=== PATIENT | female | born 1990 | race Caucasian/White ===

== ENCOUNTER 2021-03-14 12:15 | Observation (INO) | payer BC ==
[~2021-03-14] VITALS: Ht 170.2 cm; Wt 71.0 kg
[~2021-03-14 12:15] MED LIST: ACETAMINOPHEN TAB 650MG DOSE (2X325MG) PO SCH; IBUPROFEN 600MG TAB PO SCH
[2021-03-14] MEDS ORDERED: MORPHINE 2 MG/ML 1ML VIAL (J2270) IV ONE (12:50)
[2021-03-14] MEDS: NS 1,000 ML IV SCH ×2 (13:16→15:55)
[2021-03-14 13:28] LABS: BASO % 0.2 % (0.0-1.0); EOS % 0.1 % (0.0-3.0); HEMATOCRIT 31.2 % (36.0-47.0); HEMOGLOBIN 10.4 g/dl (12.0-15.5); LYMPH # 1.7 10^3/uL (1.5-5.0); LYMPH % 12.9 % (24.0-44.0); MEAN CORPUSCULAR HEMOGLOBIN 30.5 pg (27.0-33.0); MEAN CORPUSCULAR HGB CONC 33.3 g/dl (32.0-36.5); MEAN CORPUSCULAR VOLUME 91.5 fl (80.0-96.0); MONO # 1.1 10^3/uL (0.0-0.8); MONO % 8.4 % (2.0-8.0); NEUTROPHILS # 10.4 10^3/uL (1.5-8.5); PLATELET COUNT, AUTOMATED 248 10^3/uL (150-450); RED BLOOD COUNT 3.41 10^6/uL (4.00-5.40); WHITE BLOOD COUNT 13.4 10^3/uL (4.0-10.0)
[2021-03-14] MEDS ORDERED: oxyCODONE 5MG TAB PO PRN (14:00)
[2021-03-14] MEDS ORDERED: HOME MED LIST COMPLETE! XX SCH (14:05)
--- NOTE | 2021-03-14 14:19 | HPEPDOC ---
General Date of Admission 03/14/2021 Date of Service: Mar 14, 2021 Chief Complaint The patient is a 30-year-old -0-1-2 who presents to the emergency room as a transfer of care from [facility] with a diagnosis of pelvic pain and hemoperitoneum visualized on CT scan. Patient states that her pain started last night around 9 PM after intercourse. The pain began in the right lower quadrant and increased significantly over the course of several hours. Patient states that she was unable to get comfortable and that she took several hot pads and applied heating pads which provided minimal relief. Patient states that she tried to stay home bed at approximately 4 AM the pain became so severe that she felt like she was going to pass out at which time she presented to [facility]. At the time she was nauseous but has not vomited. She denies any shortness of breath dizziness or lightheadedness. She denies any vaginal bleeding but states that she feels as if her abdomen is bloated. Since present ing to the [facility] she feels that her pain is better controlled however it has radiated to her right upper quadrant. She has started to develop some tenderness in her right shoulder consistent with referred peritoneal pain. Patient's LMP was February 19 and she is not currently on any contraception. She and her partner use condoms for control. Her beta hCG drawn in [facility] was negative. Here in the emergency room at [facility] the patient rates her pain at about a 6 out of 10. It is worsened with sudden movements and abdominal flexion such as coughing or laughing. However, she is resting comfortably during our interview. On ROS: Denies fevers or chills. Had one episode of lightheadedness around 4 AM but symptoms have since resolved. Denies headaches or vision changes. Denies chest pain or shortness of breath. Denies palpitations. Denies constipation diarrhea. Denies dysuria urgency or frequency. Denies vaginal bleeding. Denies muscle weakness. See HPI for remainder of pertinent positives and negatives. OB history: -0-1-2, x1, LTCS x1, SAB x1 [employer] history: LMP 02/19/2021, cycle cyclic and regular. Denies history of STDs or STIs. Not currently on contraception. No history of ovarian cysts. No history of abnormal Pap smears. Source: Patient Home Medications No Active Prescriptions or Reported Meds Allergies Coded Allergies: No Known Allergies (Unverified , 03/14/21) Past Medical History Medical History Denies Surgical History Primary low transverse section in January 2020 for breech presentation in labor Family History Significant Family History: No pertinent family hx Social History * Smoker: Denies Alcohol: Denies Drugs: denies A-FIB/CHADSVASC A-FIB History Current/History of A-Fib/PAF?: No Current PO Anticoag Therapy: No Physical Examination General Exam: Positive: Alert, No Acute Distress Chest Exam: Positive: Clear to auscultation Heart Exam: Positive: Rate Normal, Regular Rhythm Abdomen Exam: Positive: Soft (Moderately tender to palpation in the right lower quadrant. Nondistended, nontympanic. No rebounding or guarding.) Vital Signs Vital Signs Date Time Temp Pulse Resp B/P (MAP) Pulse Ox O2 Delivery O2 Flow Rate FiO2 03/14/21 13:27 16 03/14/21 13:15 66 118/61 (80) 98 Room Air 03/14/21 12:16 97.5 Laboratory Data Labs 24H Laboratory Tests 2 03/14/21 13:15: Immature Granulocyte % (Auto) 0.4, Neutrophils (%) (Auto) 78.0H, Lymphocytes (%) (Auto) 12.9L, Monocytes (%) (Auto) 8.4H, Eosinophils (%) (Auto) 0.1, Basophils (%) (Auto) 0.2, Neutrophils # (Auto) 10.4H, Lymphocytes # (Auto) 1.7, Monocytes # (Auto) 1.1H, Eosinophils # (Auto) 0.0, Basophils # (Auto) 0.0, Nucleated Red Blood Cells % (auto) 0.0 CBC/BMP Laboratory Tests 03/14/21 13:15 Assessment/Plan Patient is a 30-year-old -0-1-2 with pelvic pain and pelvic imaging showing hemoperitoneum likely related to ruptured hemorrhagic cyst. Plan / VTE VTE Prophylaxis Ordered?: Yes (Teds) VTE Exclusion Mechanical Proph: Low Risk for VTE VTE Exclusion Pharmacological: Hemorrhage Plan Plan Admit patient for observation overnight. 1. Hemoperitoneum -Patient hemodynamically stable -Hemoglobin stable at 10.4 slightly decreased from 11.8 this morning -Recommend serial hemoglobins every 4-6 hours to assess for ongoing bleeding -Discussed the need for possible emergency surgery if vital signs become unstable or pain dramatically increases 2. Pain control -Tylenol and Motrin [id number] -Oxycodone 5 mg as needed -Serial abdominal exams if pain starts to increase or is not controlled with medications Dispo: Admit patient for observation and for pain control overnight. Anticipate discharge in the morning IVF: Continue Diet: Continue Current Activity: Continue Current YOBANI RAUSCH MD Mar 14, 2021 14:13
[2021-03-14 16:04] VITALS: BP 125/56
[2021-03-14 18:04] LABS: HEMATOCRIT 26.8 % (36.0-47.0); HEMOGLOBIN 8.7 g/dl (12.0-15.5)
[2021-03-14 20:00] VITALS: BP 126/56
[2021-03-14] MEDS ORDERED: ACETAMINOPHEN TAB 650MG DOSE (2X325MG) PO SCH (20:00)
[2021-03-14] MEDS: IBUPROFEN 600MG TAB PO SCH (20:22)
[2021-03-14] MEDS: ACETAMINOPHEN 500 MG TAB PO SCH (20:23)
[2021-03-14 22:00] LABS: HEMATOCRIT 24.7 % (36.0-47.0); HEMOGLOBIN 8.1 g/dl (12.0-15.5)
[2021-03-15] VITALS: BP 116/56
[2021-03-15 01:47] LABS: HEMATOCRIT 24.6 % (36.0-47.0)
[2021-03-15] MEDS: IBUPROFEN 600MG TAB PO SCH ×2 (03:21→09:30)
[2021-03-15] MEDS: ACETAMINOPHEN 500 MG TAB PO SCH ×2 (03:21→09:30)
[2021-03-15 03:54] VITALS: BP 117/56
[2021-03-15 06:27] LABS: HEMATOCRIT 25.6 % (36.0-47.0); HEMOGLOBIN 8.2 g/dl (12.0-15.5)
[2021-03-15] MEDS ORDERED: INFLUENZA QUADRIVALENT PF VACCINE 0.5ML SYRINGE IM ONE (09:00)
[2021-03-15 09:30] VITALS: BP 121/77
--- NOTE | 2021-03-15 12:15 | DS.PDOC ---
Discharge Summary General Date of Admission Mar 14, 2021 at 13:53 Date of Discharge 03/15/2021 Discharge Summary PROCEDURES PERFORMED DURING STAY: None. ADMITTING DIAGNOSES: 1. Pelvic pain DISCHARGE DIAGNOSES: 1. hemoperitoneum 2. Pelvic pain 3. Rupture of ovarian cyst 4. + RSV COMPLICATIONS/CHIEF COMPLAINT: Hemoperitoneum, Nontraumatic, Pelvic Pain, Rupture. HISTORY OF PRESENT ILLNESS: 30 year old female who is a with an LMP of 03/15/2021 was admitted via transfer from [facility] with symptoms of severe pelvic pain that began at 9pm on 03/14/21, pain was worsened with cough or flexion of abdominal muscles. Pt was given pain medication (morphine) at [facility] with good relief, and was transfered to [facility] for further evaluation and management. Pt is now noting abdominal bloating and mild discomfort at this time, and has started her menses in the last few hours. She is using condoms for contraception, has used ocp and Mirena IUD in past, and her partner is currently contemplating vasectomy. Pt is ambulating without problems, she is voiding without problems and tolerating regular diet. Of note, she is positive for RSV and complains of mild rhinorrhea. Her one year old child also has cold symptoms. Consult for plan of care done with Dr Olivera, [employer] HOSPITAL COURSE: Uncomplicated, severe pelvic pain resolved, anemia. DISCHARGE MEDICATIONS: Please see below. ALLERGIES: Please see below. PHYSICAL EXAMINATION ON DISCHARGE: VITAL SIGNS: Please see below. GENERAL: alert and oriented x 3. RESPIRATORY EXAMINATION: normal rate, breathing comfortably on room air, no use of accessory muscles ABDOMINAL EXAMINATION: soft, mild pelvic tenderness that has improved LABORATORY DATA: Please see below. ACTIVITY: As tolerated. DIET: regular diet DISCHARGE PLAN: 1. Discharge to home. 2. Follow-up with [employer] provider in 1-2 weeks ([place]). 3. Diet as tolerated. 4. Pelvic rest including no vaginal intercourse or heavy lifting until pain resolves. 5. Start Iron supplement BID, may use colace as needed. 6. May use Ibuprofen and Tylenol for pain relief. DISCHARGE CONDITION: Stable. Vital Signs/I&Os Vital Signs Date Time Temp Pulse Resp B/P (MAP) Pulse Ox O2 Delivery O2 Flow Rate FiO2 03/15/21 09:30 98.7 81 16 121/77 (92) 99 Room Air I&O- Last 24 Hours up to 6 AM 03/15/21 06:00 Intake Total 1240 ml Output Total 400 ml Balance 840 ml Laboratory Data Labs 24H Laboratory Tests 2 03/14/21 13:15: Immature Granulocyte % (Auto) 0.4, Neutrophils (%) (Auto) 78.0H, Lymphocytes (%) (Auto) 12.9L, Monocytes (%) (Auto) 8.4H, Eosinophils (%) (Auto) 0.1, Basophils (%) (Auto) 0.2, Neutrophils # (Auto) 10.4H, Lymphocytes # (Auto) 1.7, Monocytes # (Auto) 1.1H, Eosinophils # (Auto) 0.0, Basophils # (Auto) 0.0, Nucleated Red Blood Cells % (auto) 0.0 CBC/BMP Laboratory Tests 03/14/21 13:15 03/14/21 17:50 03/14/21 21:50 03/15/21 01:33 03/15/21 06:07 Discharge Medications Scheduled Docusate Sodium (Colace) 100 Mg Capsule, 1 CAP PO BID Ferrous Gluconate (Ferrous Gluconate) 324 Mg Tablet, 1 TAB PO BID Scheduled PRN Acetaminophen (Acetaminophen) 500 Mg Tablet, 1,000 MG PO Q8HP PRN for PAIN LEVEL 1-5 Ibuprofen (Ibuprofen) 600 Mg Tablet, 800 MG PO Q8HP PRN for PAIN LEVEL 5-10 Allergies Coded Allergies: codeine (Verified Adverse Reaction, Unknown, vomiting, 03/14/21) Pt states codeine makes her vomit SUMA ASHRAF CNM Mar 15, 2021 12:16
[2021-03-15] MEDS ORDERED: ACET-683 PO (12:21)
[2021-03-15] MEDS ORDERED: FERR32TA PO (12:21)
[2021-03-15] MEDS ORDERED: COLA100C5 PO (12:21)
[2021-03-15] MEDS ORDERED: IBUP-1022 PO (12:21)
== END 2021-03-15 13:20 | disposition home or self-care (01) ==
LOC: M ED 12:15 → M ED INP 13:53 → M PED 16:04
PROVIDERS: ADMIT Obstetrics & Gynecology; ATTEND Obstetrics & Gynecology
DX: K66.1 Hemoperitoneum (principal); R10.2 Pelvic and perineal pain; N83.209 Unspecified ovarian cyst, unspecified side; J06.9 Acute upper respiratory infection, unspecified; B97.4 Respiratory syncytial virus as the cause of diseases classified elsewhere; J34.89 Other specified disorders of nose and nasal sinuses; D64.9 Anemia, unspecified; Z79.899 Other long term (current) drug therapy; Z88.5 Allergy status to narcotic agent
CPT/HCPCS: 36415; 85014; 85018; 85025; 86850; 86900; 86901; 90686; 96361; 96374; 99285; G0008; J2270